=== PATIENT | female | born 1995 | race Caucasian/White ===

== ENCOUNTER 2016-07-15 17:56 | Emergency (ER) | payer OTHER ==
[2016-07-15 18:51] VITALS: BP 137/86
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
== END 2016-07-15 19:20 | disposition home or self-care (01) ==
LOC: UCEAST 17:56
DX: H10.31 Unspecified acute conjunctivitis, right eye (principal); F12.90 Cannabis use, unspecified, uncomplicated
CPT/HCPCS: 99212; G0463

== ENCOUNTER 2016-08-23 15:17 | Emergency (ER) | payer OTHER ==
[2016-08-23 15:34] VITALS: BP 138/73
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
--- NOTE | 2016-08-23 16:18 | RAD ---
INDICATION: Left clavicle trauma. TECHNIQUE: 2 views of the left clavicle were obtained. FINDINGS: The bones are in normal alignment. No fracture is seen. Joint spaces appear maintained. IMPRESSION: NO EVIDENCE FOR FRACTURE.
== END 2016-08-23 16:54 | disposition home or self-care (01) ==
LOC: UCEAST 15:17
DX: S40.012A Contusion of left shoulder, initial encounter (principal); S02.5XXA Fracture of tooth (traumatic), initial encounter for closed fracture; V48.5XXA Car driver injured in noncollision transport accident in traffic accident, initial encounter; Y93.89 Activity, other specified; Y92.410 Unspecified street and highway as the place of occurrence of the external cause; F12.90 Cannabis use, unspecified, uncomplicated
CPT/HCPCS: 99212; G0463

== ENCOUNTER 2018-07-08 07:11 | Emergency (ER) | payer OTHER ==
[2018-07-08 07:22] VITALS: BP 124/71
--- NOTE | 2018-07-08 07:27 | UC ---
Throat Pain/Nasal Jabier HPI - HPI Summary HPI Summary: 23 yo with sore throat. This is a year old 23 with a chief complaint of sore throat beginning 1 ago. This is a in previous good health. Works with children. PAIN INTENSITY NOW: 11/29 LOCATION: tonsils MADE WORSE BY: food RELIEVED BY: warm fluids Note: Vital signs stable Nurses note:Sore throat, started yesterday, states she gets strep all the time. Had Ibuprofen this AM. - History of Current Complaint Stated Complaint: SORE THROAT Time Seen by Provider: 07/08/18 07:18 Hx Last Menstrual Period: 3 wks ago - Allergies/Home Medications Allergies/Adverse Reactions: Allergies Allergy/AdvReac Type Severity Reaction Status Date / Time No Known Allergies Allergy Verified 07/08/18 07:22 Home Medications: Home Medications Ibuprofen TAB* [Advil TAB*] 600 mg PO Q6H PRN 07/08/18 [History Confirmed ] PMH/Surg Hx/FS Hx/Imm Hx Previously Healthy: Yes - yearly strep throat episodes; but not documented by testing. 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 Negative: Epistaxis, Nasal Discharge, Sinus Congestion Respiratory: Positive: Negative Cardiovascular: Positive: Negative Gastrointestinal: Positive: Negative Genitourinary: Positive: Negative Motor: Positive: Negative Neurovascular: Positive: Negative Musculoskeletal: Positive: Negative Neurological: Positive: Negative Psychological: Positive: Negative Is Patient Immunocompromised?: No Physical Exam Triage Information Reviewed: Yes Eye Exam: Normal ENT Exam: Other - 1+ ANTERIOR ADENOPTHY, NECK. THROAT OPEN. UVULA MILD EDEMA AND REDNESS; TONSILS SWOLLEN, RED, EXUDATE. RIGHT MORE THAN LEFT; NOT TOUCHING. Dental Exam: Normal Neck exam: Normal Neck: Positive: 1 Respiratory: Positive: Chest non-tender, Lungs clear, Normal breath sounds Cardiovascular: Positive: RRR, No Murmur, Pulses Normal Abdomen Description: Positive: Nontender, No Organomegaly, Soft Musculoskeletal Exam: Normal Neurological Exam: Normal Psychological Exam: Normal Skin Exam: Normal Throat Pain/Nasal Course/Dx - Course Course Of Treatment: Healthy 23 yo female with sore throat for a day. History of recurrent "strep throat" clinically. RS Strep neg; works with children. Presumptive strep. Will treat with amoxicillin, dexamethasone and viscous lidocaine. - Differential Dx/Diagnosis Differential Diagnosis/HQI/PQRI: Epiglottitis, Laryngitis, Raul's Angina, Tonsillitis Provider Diagnosis: Tonsillitis Discharge - Sign-Out/Discharge Documenting (check all that apply): Patient Departure All imaging exams completed and their final reports reviewed: No Studies - Discharge Plan Condition: Stable Disposition: HOME Prescriptions: Amoxicillin PO (*) [Amoxicillin 875 MG (*)] 875 mg PO BID #20 tab MDD 2 Dexamethasone TAB* [Decadron TAB*] 4 mg PO DAILY #4 tab Lidocaine 2% VISCOUS* [Xylocaine 2% Viscous*] 15 ml SWISH SPIT Q4H #1 btl MDD 4 times a day Patient Education Materials: Tonsillitis (ED) Referrals: No Primary Care Phys,NOPCP [Primary Care Provider] - Additional Instructions: WE DISCUSSED: You have an infection of your tonsils. Your strep test was negative, but you have a history of strep, and it's still possible you have strep. I will start you on: amoxicillin, one pill twice a day for 10 days dexamethosone steroid pills for 2 days a throat gargle to decrease your discomfort. Drink lots of tea and honey. Rest; lots of fluids. No work today. You may return tomorrow, if you feel better. I will be here in 2 days; call me with any questions or concerns. You should start to improve in the next 1-3 days. - Billing Disposition and Condition Condition: STABLE Disposition: Home
== END 2018-07-08 08:00 | disposition home or self-care (01) ==
LOC: UCEAST 07:11
DX: J03.90 Acute tonsillitis, unspecified (principal)
CPT/HCPCS: 87651; 99212; G0463

== ENCOUNTER 2018-12-15 13:33 | Emergency (ER) | payer OTHER ==
[2018-12-15 14:03] VITALS: BP 132/92
--- NOTE | 2018-12-15 15:06 | UC ---
Throat Pain/Nasal Jabier HPI - HPI Summary HPI Summary: 23-year-old female presents with complaints of severe sore throat. States started approximately one week ago and has progressively worsened over the last 3 days. Associated with some subjective fever and fatigue. States she was recently exposed to mono. Denies ear pain, nasal congestion, dysphagia, chest pain, shortness of breath, abdominal pain, nausea, or vomiting. - History of Current Complaint Chief Complaint: UCRespiratory Stated Complaint: SORE THROAT SWOLLEN GLANDS Time Seen by Provider: 12/15/18 14:38 Hx Obtained From: Patient Hx Last Menstrual Period: 3 wks ago Pain Intensity: 7 - Allergies/Home Medications Allergies/Adverse Reactions: Allergies Allergy/AdvReac Type Severity Reaction Status Date / Time No Known Allergies Allergy Verified 12/15/18 14:04 PMH/Surg Hx/FS Hx/Imm Hx Previously Healthy: Yes - Denies significant PMH Other History Of: Negative For: HIV, Hepatitis B, Hepatitis C, Anticoagulant Therapy - Surgical History Surgical History: None - Family History Known Family History: Positive: Other - autoimmune disorders Negative: Cardiac Disease, Hypertension, Diabetes - Social History Occupation: Student Lives: Dormitory/Roommates Alcohol Use: Weekly Substance Use Type: Marijuana Substance Use Comment - Amount & Last Used: 2-3 times weekly Smoking Status (MU): Never Smoked Tobacco - Immunization History Most Recent Influenza Vaccination: never Most Recent Tetanus Shot: up to date Review of Systems All Other Systems Reviewed And Are Negative: Yes Constitutional: Positive: Fever - Subjective, Fatigue Skin: Negative: Rash Eyes: Negative: Drainage, Eye Redness ENT: Positive: Sore Throat. Negative: Ear Ache, Nasal Discharge, Sinus Congestion, Sinus Pain/Tenderness Respiratory: Negative: Shortness Of Breath, Cough Cardiovascular: Positive: Negative Gastrointestinal: Negative: Abdominal Pain, Vomiting, Nausea Genitourinary: Positive: Negative Musculoskeletal: Positive: Negative Neurological: Positive: Negative Is Patient Immunocompromised?: No Physical Exam - Summary Physical Exam Summary: GENERAL APPEARANCE: Well developed, obese, alert and cooperative, and appears to be in no acute distress. EYES: Conjunctiva clear. No drainage. EARS: External auditory canals and tympanic membranes clear, hearing grossly intact. NOSE: No nasal discharge. THROAT: Pharyngeal erythema. Tonsils 3+ with exudate. Uvula midline. NECK: Neck supple, non-tender. Tonsilar and posterior cervical lymphadenopathy present. CARDIAC: Normal S1 and S2. No S3, S4 or murmurs. Rhythm is regular. There is no peripheral edema, cyanosis or pallor. Extremities are warm and well perfused. Capillary refill is less than 2 seconds. Peripheral pulses intact. LUNGS: Clear to auscultation without rales, rhonchi, wheezing or diminished breath sounds. ABDOMEN: Positive bowel sounds. Soft, nondistended, nontender. No guarding or rebound. No masses or hepatosplenomegally. MUSKULOSKELETAL: ROM intact to all extremities. No joint erythema or tenderness. Normal muscular development. Normal gait. SKIN: Skin normal color, texture and turgor with no lesions or eruptions. Triage Information Reviewed: Yes Vital Signs: Initial Vital Signs Temp 98.3 F 12/15/18 13:59 Pulse 112 12/15/18 13:59 Resp 18 12/15/18 13:59 BP 132/92 12/15/18 13:59 Pulse Ox 99 12/15/18 13:59 Vital Signs Reviewed: Yes Throat Pain/Nasal Course/Dx - Course Course Of Treatment: 23-year-old female presents with complaints of severe sore throat. States started approximately one week ago and has progressively worsened over the last 3 days. Associated with some subjective fever and fatigue. States she was recently exposed to mono. Denies ear pain, nasal congestion, dysphagia, chest pain, shortness of breath, abdominal pain, nausea, or vomiting. Afebrile. Vital signs stable. Patient had pharyngeal erythema with 3+ tonsils with exudate as well as tonsillar and posterior cervical lymphadenopathy. Remainder of exam was unremarkable. Rapid strep test was negative. Monospot is pending. Discussed with the patient that her symptoms are likely viral and that I have a high suspicion that this is infectious mononucleosis. Based on the amount of tonsillar swelling I'm going put her on prednisone 50 mg daily 5 days to help with the inflammation and pain as well as recommend symptomatic treatment. She is to return here or follow up with primary care in 7 days if no improvement in symptoms. Anticipatory guidance and warning symptoms were reviewed with the patient. Verbalizes understanding and agrees with plan of care. - Differential Dx/Diagnosis Differential Diagnosis/HQI/PQRI: Mononucleosis, Pharyngitis, Tonsillitis Provider Diagnosis: Viral pharyngitis Discharge - Sign-Out/Discharge Documenting (check all that apply): Patient Departure All imaging exams completed and their final reports reviewed: No Studies - Discharge Plan Condition: Stable Disposition: HOME Prescriptions: predniSONE TAB* [Deltasone TAB*] 50 mg PO DAILY #5 tab Patient Education Materials: Pharyngitis (ED) Referrals: No Primary Care Phys,NOPCP [Primary Care Provider] - [facility] [place]] Additional Instructions: Your rapid strep test in the clinic today was negative. Your symptoms are likely from a viral infection possible mononucleosis which is also caused by a virus. We have tested you for mono and will contact you if this is positive. Viral infections do not respond to antibiotics and are limited to the treatment of symptoms. Take prednisone 50 mg 1 tablet daily for 5 days to help with the tonsilar inflammation and pain. Drink plenty of fluids to avoid dehydration especially if you are running any fever. Use salt water gargles several times a day. Take over the counter acetaminophen (Tylenol) or ibuprofen (Advil, Motrin) according to directions as needed for pain or fever. You may also use Chloraseptic spray or Cepacol lonzenges according to directions which contain a numbing medication and can provide some temporary relief from your sore throat. Return here or follow up with a primary care provider in 7 days if symptoms do not improve. I have given you the contact information for the [facility] physician referral service if you need assistance establishing with a provider. Seek immediate medical attention in the emergency room if you have fever greater than 100.5 F despite taking acetaminophen or ibuprofen, are unable to swallow or develop drooling, are unable to open your mouth fully, are unable to eat or drink, have pain that is not relieved with over the counter pain medication, or have any difficulty breathing. - Billing Disposition and Condition Condition: STABLE Disposition: Home - Attestation Statements Provider Attestation: Per institutional requirements, I have reviewed the chart, however, I was not consulted specifically or made aware of this patient by the midlevel provider. I did not personally evaluate, interact with , or disposition this patient.
--- NOTE | 2018-12-16 07:19 | UC ---
- Progress Note Progress Note: Your monospot test confirms that you do have mono - also called mononucleosis. Which is a virus. You do not need antibiotics for this illness. Continue with supportive care. With mono it is recommended that you avoid contact sports for 4 weeks - starting at onset of symptoms. If symptoms have continued or worsened , recommend follow up with your PCP or return to urgent care. Course/Dx - Diagnoses Provider Diagnoses: Viral pharyngitis Discharge - Sign-Out/Discharge Documenting (check all that apply): Post-Discharge Follow Up All imaging exams completed and their final reports reviewed: No Studies - Discharge Plan Condition: Stable Disposition: HOME Prescriptions: predniSONE TAB* [Deltasone TAB*] 50 mg PO DAILY #5 tab Patient Education Materials: Pharyngitis (ED) Referrals: [facility] [place]] No Primary Care Phys,NOPCP [Primary Care Provider] - Additional Instructions: Your rapid strep test in the clinic today was negative. Your symptoms are likely from a viral infection possible mononucleosis which is also caused by a virus. We have tested you for mono and will contact you if this is positive. Viral infections do not respond to antibiotics and are limited to the treatment of symptoms. Take prednisone 50 mg 1 tablet daily for 5 days to help with the tonsilar inflammation and pain. Drink plenty of fluids to avoid dehydration especially if you are running any fever. Use salt water gargles several times a day. Take over the counter acetaminophen (Tylenol) or ibuprofen (Advil, Motrin) according to directions as needed for pain or fever. You may also use Chloraseptic spray or Cepacol lonzenges according to directions which contain a numbing medication and can provide some temporary relief from your sore throat. Return here or follow up with a primary care provider in 7 days if symptoms do not improve. I have given you the contact information for the [facility] physician referral service if you need assistance establishing with a provider. Seek immediate medical attention in the emergency room if you have fever greater than 100.5 F despite taking acetaminophen or ibuprofen, are unable to swallow or develop drooling, are unable to open your mouth fully, are unable to eat or drink, have pain that is not relieved with over the counter pain medication, or have any difficulty breathing. - Billing Disposition and Condition Condition: STABLE Disposition: Home
== END 2018-12-15 15:33 | disposition home or self-care (01) ==
LOC: UCEAST 13:33
DX: J02.8 Acute pharyngitis due to other specified organisms (principal); B27.90 Infectious mononucleosis, unspecified without complication; Z20.828 Contact with and (suspected) exposure to other viral communicable diseases
CPT/HCPCS: 36415; 86308; 87651; 99212; G0463